=== PATIENT | male | born 1990 | race Caucasian/White ===

== ENCOUNTER → 2016-07-29 | Outpatient (CLI) | payer BC ==
[~2016-07-29] MED LIST: ASPI-390 PO; LISI10TA PO; OPTIRAY 320 IV PRN
--- NOTE | 2016-07-29 07:14 | DIAGNOSTIC IMAGING REPORT ---
CT ABD/PELVIS IV AND ORAL CONT CLINICAL HISTORY: SEMINOMA COMPARISON STUDY: 04/09/2016 TECHNIQUE: Following the IV administration of 100 mL of Optiray-320, CT scan of the abdomen and pelvis was performed from the lung bases to the proximal femurs. Images are reviewed in the axial, sagittal, and coronal planes. IV contrast was administered without complication. CT DOSE: 338.10 mGy.cm FINDINGS: Lower chest: The heart is normal in size and configuration, without pericardial effusion. The lung bases and pleural spaces are clear. Liver: The contrast-enhanced liver is normal in size, contour, and attenuation. There is no intrahepatic biliary ductal dilatation. The hepatic veins and portal veins are patent. Gallbladder: Unremarkable. Spleen: Normal in size and attenuation. Pancreas: Unremarkable. Adrenal glands: Unremarkable. Kidneys: There is a nonobstructing 3 mm left renal calculus. There is no hydronephrosis. Bowel: There are no transition zones indicate bowel obstruction. There is no acute diverticulitis. The appendix appears normal. Peritoneum: There is no intraperitoneal free air or abdominal ascites. Vasculature: The abdominal aorta is normal in course and caliber. Adenopathy: None. Pelvic viscera: The bladder, and pelvic viscera are unremarkable. Skeletal structures: No destructive osseous lesions are seen. IMPRESSION: 1. No evidence of metastatic disease 2. Nonobstructing 3 mm left renal calculus. Electronically signed by: Sean Etienne M.D. 07/29/2016 7:13 AM Dictated Date/Time: 07/29/2016 7:11 AM
== END | disposition home or self-care (01) ==
LOC: C.CTS 06:27
PROVIDERS: ATTEND Internal Medicine Hematology & Oncology
DX: C62.11 Malignant neoplasm of descended right testis (principal); N20.0 Calculus of kidney

== ENCOUNTER → 2017-06-16 | Outpatient (CLI) | payer BC ==
--- NOTE | 2017-06-16 11:22 | DIAGNOSTIC IMAGING REPORT ---
ABDOMEN AND PELVIS CT WITH IV AND ORAL CONTRAST CT DOSE: 482.55 mGy.cm HISTORY: Follow-up study SEMINOMA TESTICLE TECHNIQUE: Multiaxial CT images of the abdomen and pelvis were performed following the use of intravenous and oral contrast. A dose lowering technique was utilized adhering to the principles of ALARA. COMPARISON STUDY: CT abdomen and pelvis 07/29/2016. FINDINGS: The lung bases appear clear. There is no pneumatosis or pneumoperitoneum identified. The imaged inferior cardiac chambers are unremarkable. The gallbladder, liver, spleen, pancreas and adrenal glands are within normal limits. 3 mm nonobstructing calculus of the inferior pole left kidney is noted, unchanged. No ureteral calculi or obstructive uropathy. Ureters, and urinary bladder are unremarkable. Minimal central prosthetic calcifications are noted. Aorta is normal in both course and caliber. There is no pathologic adenopathy identified. There is no bowel obstruction or focal bowel wall thickening identified. The appendix measures in the upper limits of normal at 7 mm which is unchanged and demonstrates no inflammatory stranding to suggest acute appendicitis. Mildly prominent nonenlarged right inguinal lymph nodes are seen measuring up to 7 mm which are unchanged. Postsurgical changes of the right inguinal region. The bones appear intact. No suspicious lytic or blastic bony lesions. IMPRESSION: 1. No acute intra-abdominal or intrapelvic abnormality identified. 2. No evidence of metastatic disease or pathologic adenopathy. 3. Nonobstructing 3 mm calculus of the inferior pole left kidney. Electronically signed by: Eliezer Ramos M.D. 06/16/2017 11:21 AM Dictated Date/Time: 06/16/2017 10:18 AM
== END | disposition home or self-care (01) ==
LOC: C.CTS 09:38
PROVIDERS: ATTEND Internal Medicine Hematology & Oncology
DX: C62.11 Malignant neoplasm of descended right testis (principal); N20.0 Calculus of kidney

== ENCOUNTER → 2017-12-17 | Outpatient (CLI) | payer BC ==
--- NOTE | 2017-12-17 10:25 | DIAGNOSTIC IMAGING REPORT ---
ABDOMEN AND PELVIS CT WITH IV AND ORAL CONTRAST CT DOSE: 457.92 mGy.cm HISTORY: SEMINOMA TECHNIQUE: Multiaxial CT images of the abdomen and pelvis were performed following the use of intravenous and oral contrast. A dose lowering technique was utilized adhering to the principles of ALARA. COMPARISON STUDY: Abdomen and pelvis CT 06/16/2017. FINDINGS: The lung bases are clear. No suspicious lytic or blastic osseous lesions. The liver, gallbladder, pancreas, spleen, adrenal glands, and kidneys are unremarkable. No hydronephrosis. No retroperitoneal lymphadenopathy. No pelvic or inguinal lymphadenopathy. Normal bladder. Prior right orchiectomy. No bowel wall thickening or obstruction. Normal appendix. IMPRESSION: No evidence for metastatic disease within the abdomen or pelvis. Electronically signed by: Iker Hammer M.D. 12/17/2017 10:24 AM Dictated Date/Time: 12/17/2017 10:18 AM
== END | disposition home or self-care (01) ==
LOC: C.CTS 09:36
PROVIDERS: ATTEND Internal Medicine Hematology & Oncology
DX: C62.11 Malignant neoplasm of descended right testis (principal)